=== PATIENT | female | born 1960 | race Caucasian/White ===

== ENCOUNTER 2022-12-11 22:09 | Emergency (ER) | payer OTHER ==
[~2022-12-11 22:09] MED LIST: LIDOCAINE PATCH REMOVAL MC SCH
[2022-12-11 22:20] VITALS: RESP 18; BMI 22.3
[2022-12-11] MEDS ORDERED: LIDOCAINE 5% TOPICAL PATCH TP ONE ×2 (22:54→22:55)
[2022-12-11] MEDS ORDERED: diazePAM 2 MG TABLET PO ONE (22:54)
[2022-12-11] MEDS ORDERED: ACETAMINOPHEN 500 MG TABLET (FP) PO ONE (22:54)
[2022-12-11] MEDS ORDERED: LIDOCAINE 5% TOPICAL PATCH ONE (23:33)
[2022-12-11] MEDS ORDERED: ACETAMINOPHEN 325 MG TABLET (FP) ONE (23:33)
[2022-12-11] MEDS ORDERED: diazePAM 2 MG TABLET ONE (23:34)
[2022-12-12 01:33] VITALS: BP 119/63; PULSE 57; TEMP 98.5
== END 2022-12-12 02:28 | disposition home or self-care (01) ==
LOC: JER 22:09
DX: S22.020A Wedge compression fracture of second thoracic vertebra, initial encounter for closed fracture (principal); W10.9XXA Fall (on) (from) unspecified stairs and steps, initial encounter
CPT/HCPCS: 72128-TC; 72131-TC; 93970-TC; 99285-25